=== PATIENT | male | born 1990 | race Caucasian/White ===

== ENCOUNTER 2018-08-27 18:28 | Emergency (ER) | payer SELFPAY ==
[2018-08-27 18:47] VITALS: BP 152/85; PULSE 103; RESP 16; TEMP 98.4; O2SAT 98
[2018-08-27] MEDS ORDERED: Tdap Vaccine 0.5 ml Vial (10-64 yrs) IM ONE ×2 (19:48→19:55)
[2018-08-27] MEDS ORDERED: Oxycodone/Acetaminophen 5/325 mg Tab PO STA (19:50)
[2018-08-27] MEDS ORDERED: Oxycodone/Acetaminophen 5/325 mg Tab ONE (20:03)
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
[2018-08-27] MEDS ORDERED: Bacitracin 500 Units/gm Oint Foilpak UD ONE (21:45)
--- NOTE | 2018-08-28 07:57 | RAD ---
Date of service: 08/27/2018 PROCEDURE: HISTORY: injury COMPARISON: None TECHNIQUE: AP pelvis and frog's leg view. FINDINGS: No fracture or lytic lesion appreciated.. Each superolateral hip joint space appears slightly shallow given patient's age. No prominent spurring suggested. Trace sacroiliac sclerotic arthrosis-bilateral. Pubic symphysis grossly within normal limits. IMPRESSION: No fracture or dislocation. Other findings as above.
--- NOTE | 2018-08-28 08:31 | RAD ---
Date of service: 08/27/2018 PROCEDURE: Left Wrist Radiographs. HISTORY: injury COMPARISON: None. TECHNIQUE: 4 views obtained. FINDINGS: BONES: Normal. No fracture. JOINTS: Normal. No dislocation. SOFT TISSUES: Normal. OTHER FINDINGS: None. IMPRESSION: Normal left wrist radiographs.
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
== END 2018-08-27 21:56 | disposition home or self-care (01) ==
LOC: C.ER 18:28
DX: S06.0X0A Concussion without loss of consciousness, initial encounter (principal); S01.81XA Laceration without foreign body of other part of head, initial encounter; S63.502A Unspecified sprain of left wrist, initial encounter; S70.02XA Contusion of left hip, initial encounter; S70.212A Abrasion, left hip, initial encounter; X58.XXXA Exposure to other specified factors, initial encounter; Y93.55 Activity, bike riding
CPT/HCPCS: 12011; 70450; 73100; 73503; 90471; 90715; 96372; 99285; J2765